=== PATIENT | female | born 1950 | race Caucasian/White ===

== ENCOUNTER → 2016-07-23 | Outpatient (CLI) | payer MEDICARE ==
[~2016-07-23] MED LIST: FLEXERIL10 MG PO; MOTRIN800 MG PO
== END | disposition home or self-care (01) ==
LOC: LAB 02:49
DX: K52.1 Toxic gastroenteritis and colitis (principal); R73.02 Impaired glucose tolerance (oral)

== ENCOUNTER → 2016-07-31 | Outpatient (CLI) | payer MEDICARE | END | disposition home or self-care (01) | LOC: LAB 11:14 | DX: K52.1 Toxic gastroenteritis and colitis (principal); R73.02 Impaired glucose tolerance (oral) ==

== ENCOUNTER → 2016-08-30 | Outpatient (CLI) | payer MEDICARE ==
[2016-08-30 07:22] LABS: HEMATOCRIT 36.3 % (37.0-47.0); HEMOGLOBIN 12.3 g/dl (12.0-16.0); MEAN CELL VOLUME 97.8 fl (81.0-99.0); MEAN CORPUSCULAR HGB 33.2 pg (27.0-31.0); MEAN CORPUSCULAR HGB CONC 33.9 g/dl (33.0-37.0); MEAN PLATELET VOLUME 8.2 fl (9.6-12.3); PLATELET COUNT AUTOMATED 260 10*3/uL (130-400); RED BLOOD COUNT 3.71 10*6/uL (4.10-5.10); RED CELL DISTRI WIDTH 11.9 % (0-14.5)
[2016-08-30 07:44] LABS: BASOPHILS 2 % (0-1); EOSINOPHIL # 0.1 10*3/uL (0-0.4); EOSINOPHILS 4 % (1-4); LYMPHOCYTE # 0.6 10*3/uL (1.3-4.4); METAMYELOCYTES 1 % (0-0); MONOCYTE # 0.3 10*3/uL (0.1-1.0); NEUTROPHIL # 0.7 10*3/uL (2.3-7.9); NEUTROPHILS 39 % (47-73); PLATELET SUFFICIENCY NORMAL (NORMAL); ROULEAUX SLIGHT; TOTAL CELLS COUNTED 100 #CELLS
[2016-08-30 07:47] LABS: BUN 6 mg/dl (7-24); CARBON DIOXIDE 29 mmol/L (21-32); CHLORIDE 100 mmol/L (98-107); GLUCOSE 88 mg/dL (65-99); POTASSIUM 4.3 mmol/L (3.5-5.1); SODIUM 133 mmol/L (136-145)
[2016-08-30 07:58] LABS: EST GLOM FILT AFRICAN AMERICAN > 60 ml/min; FREE T4 0.91 ng/dl (0.76-1.46)
[2016-08-30 08:21] LABS: WHITE BLOOD COUNT 1.7 10*3/uL (4.8-10.8)
== END | disposition home or self-care (01) ==
LOC: LAB 02:53
PROVIDERS: Internal Medicine
DX: E06.9 Thyroiditis, unspecified (principal)

== ENCOUNTER → 2016-12-03 | Outpatient (CLI) | payer MEDICARE ==
[2016-12-03 09:32] LABS: ALBUMIN 3.5 gm/dl (3.1-4.5); ALKALINE PHOSPHATASE 49 U/L (45-117); BILIRUBIN, TOTAL 0.5 mg/dl (0.2-1.0); BUN 9 mg/dl (7-24); CARBON DIOXIDE 27 mmol/L (21-32); CHLORIDE 96 mmol/L (98-107); EST GLOM FILT AFRICAN AMERICAN > 60 ml/min; GLUCOSE 76 mg/dL (65-99); MAGNESIUM 2.1 mg/dL (1.5-2.1); POTASSIUM 4.2 mmol/L (3.5-5.1); SGOT/AST 35 IU/L (3-35); SGPT/ALT 32 U/L (12-78); SODIUM 128 mmol/L (136-145); TOTAL PROTEIN 9.4 gm/dL (6.4-8.2)
[2016-12-03 10:27] LABS: PTH INTACT 56.3 pg/mL (14.0-72.0); VITAMIN D, 25-HYDROXY 35.8 ng/mL (30-100)
== END | disposition home or self-care (01) ==
LOC: LAB 08:35
PROVIDERS: Internal Medicine Nephrology
DX: E87.1 Hypo-osmolality and hyponatremia (principal); M35.00 Sjogren syndrome, unspecified; G70.00 Myasthenia gravis without (acute) exacerbation; E55.9 Vitamin D deficiency, unspecified

== ENCOUNTER → 2016-12-06 | Outpatient (CLI) | payer MEDICARE ==
[2016-12-06 09:41] LABS: BASO # 0.1 10*3/uL (0.0-0.1); BASO % 2.5 % (0.0-1.0); EOS % 1.5 % (1.0-4.0); HEMATOCRIT 32.9 % (37.0-47.0); LYMPH # 0.5 10*3/uL (1.3-4.4); LYMPH % 26.6 % (27.0-41.0); MEAN CELL VOLUME 96.5 fl (81.0-99.0); MEAN CORPUSCULAR HGB 32.3 pg (27.0-31.0); MEAN CORPUSCULAR HGB CONC 33.4 g/dl (33.0-37.0); MEAN PLATELET VOLUME 8.6 fl (9.6-12.3); MONO # 0.4 10*3/uL (0.1-1.0); MONO % 18.2 % (3.0-9.0); NEUT % 51.2 % (47.0-73.0); PLATELET COUNT AUTOMATED 191 10*3/uL (130-400); RED BLOOD COUNT 3.41 10*6/uL (4.10-5.10); RED CELL DISTRI WIDTH 12.4 % (0-14.5)
== END | disposition home or self-care (01) ==
LOC: LAB 00:24
PROVIDERS: Internal Medicine Nephrology
DX: M35.00 Sjogren syndrome, unspecified (principal); G70.00 Myasthenia gravis without (acute) exacerbation; R87.1 Abnormal level of hormones in specimens from female genital organs; E87.1 Hypo-osmolality and hyponatremia

== ENCOUNTER → 2017-01-17 | Outpatient (CLI) | payer MEDICARE | END | disposition home or self-care (01) | LOC: LAB 01-16 00:41 | DX: R19.7 Diarrhea, unspecified (principal) ==

== ENCOUNTER → 2017-02-26 | Outpatient (CLI) | payer MEDICARE ==
[2017-02-26 08:15] LABS: BILIRUBIN NEGATIVE (NEGATIVE); BLOOD TRACE-INTACT (NEGATIVE); CLARITY CLEAR (CLEAR); COLOR YELLOW (YELLOW); GLUCOSE NEGATIVE (NEGATIVE); KETONE NEGATIVE (NEGATIVE); LEUKO ESTERASE NEGATIVE (NEGATIVE); NITRITE NEGATIVE (NEGATIVE); UROBILINOGEN 0.2 E.U./dl (0.2-1.0)
[2017-02-26 08:18] LABS: HEMATOCRIT 36.1 % (37.0-47.0); MEAN CELL VOLUME 97.3 fl (81.0-99.0); MEAN CORPUSCULAR HGB 32.3 pg (27.0-31.0); MEAN CORPUSCULAR HGB CONC 33.2 g/dl (33.0-37.0); MEAN PLATELET VOLUME 8.5 fl (9.6-12.3); PLATELET COUNT AUTOMATED 226 10*3/uL (130-400); RED BLOOD COUNT 3.71 10*6/uL (4.10-5.10); RED CELL DISTRI WIDTH 12.5 % (0-14.5)
[2017-02-26 08:26] LABS: URINE CREATININE RANDOM 78.5 mg/dL
[2017-02-26 08:45] LABS: ALBUMIN 3.5 gm/dl (3.1-4.5); ALKALINE PHOSPHATASE 53 U/L (45-117); BUN 10 mg/dl (7-24); CHLORIDE 95 mmol/L (98-107); CREATININE 0.82 mg/dL (0.55-1.02); MAGNESIUM 2.3 mg/dL (1.5-2.1); PHOSPHOROUS 3.8 mg/dL (2.5-4.9); POTASSIUM 4.6 mmol/L (3.5-5.1); SGOT/AST 39 IU/L (3-35); SGPT/ALT 42 U/L (12-78); SODIUM 128 mmol/L (136-145); TOTAL PROTEIN 10.2 gm/dL (6.4-8.2); URIC ACID 2.4 mg/dL (2.6-6.0)
[2017-02-26 08:51] LABS: BACTERIA 1+
[2017-02-26 08:51] LABS: BASOPHILS 2 % (0-1); PLATELET SUFFICIENCY NORMAL (NORMAL); TOTAL CELLS COUNTED 100 #CELLS
[2017-02-26 08:56] LABS: WHITE BLOOD COUNT 1.8 10*3/uL (4.8-10.8)
[2017-02-27 12:08] LABS: MICRO ALBUMIN/CRE RATIO 13.3 (0.0-30.0)
== END | disposition home or self-care (01) ==
LOC: LAB 03:00
PROVIDERS: Internal Medicine Nephrology
DX: K22.70 Barrett's esophagus without dysplasia (principal); E87.1 Hypo-osmolality and hyponatremia; M35.00 Sjogren syndrome, unspecified; G70.00 Myasthenia gravis without (acute) exacerbation

== ENCOUNTER → 2017-03-12 | Outpatient (CLI) | payer MEDICARE ==
[2017-03-12 12:47] LABS: BUN 8 mg/dl (7-24); CHLORIDE 95 mmol/L (98-107); CREATININE 0.77 mg/dL (0.55-1.02); FREE T4 0.95 ng/dl (0.76-1.46); POTASSIUM 4.6 mmol/L (3.5-5.1); SODIUM 130 mmol/L (136-145)
[2017-03-13 15:07] LABS: THYROGLOBULIN ANTIBODY 72.6 IU/mL (0.0-0.9)
== END | disposition home or self-care (01) ==
LOC: LAB 03:56 → US 12:30 → LAB 12:30
PROVIDERS: Internal Medicine
DX: E04.1 Nontoxic single thyroid nodule (principal); E06.9 Thyroiditis, unspecified; E55.9 Vitamin D deficiency, unspecified; E16.1 Other hypoglycemia

== ENCOUNTER → 2017-04-04 | Outpatient (CLI) | payer MEDICARE ==
[2017-04-04 09:43] LABS: BASO # 0.1 10*3/uL (0.0-0.1); BASO % 2.2 % (0.0-1.0); EOS # 0.1 10*3/uL (0.0-0.4); EOS % 2.5 % (1.0-4.0); HEMATOCRIT 35.5 % (37.0-47.0); HEMOGLOBIN 11.9 g/dl (12.0-16.0); LYMPH # 0.6 10*3/uL (1.3-4.4); LYMPH % 20.4 % (27.0-41.0); MEAN CELL VOLUME 96.5 fl (81.0-99.0); MEAN CORPUSCULAR HGB 32.3 pg (27.0-31.0); MEAN CORPUSCULAR HGB CONC 33.5 g/dl (33.0-37.0); MEAN PLATELET VOLUME 8.7 fl (9.6-12.3); MONO # 0.3 10*3/uL (0.1-1.0); MONO % 11.5 % (3.0-9.0); NEUT # 1.8 10*3/uL (2.3-7.9); PLATELET COUNT AUTOMATED 224 10*3/uL (130-400); RED BLOOD COUNT 3.68 10*6/uL (4.10-5.10); RED CELL DISTRI WIDTH 12.2 % (0-14.5); WHITE BLOOD COUNT 2.8 10*3/uL (4.8-10.8)
[2017-04-04 10:13] LABS: ALBUMIN 3.8 gm/dl (3.1-4.5); ALKALINE PHOSPHATASE 53 U/L (45-117); BUN 9 mg/dl (7-24); CHLORIDE 97 mmol/L (98-107); CREATININE 0.77 mg/dL (0.55-1.02); FREE T4 0.93 ng/dl (0.76-1.46); IRON 88 ug/dL (50-170); POTASSIUM 4.5 mmol/L (3.5-5.1); SGOT/AST 39 IU/L (3-35); SGPT/ALT 44 U/L (12-78); SODIUM 131 mmol/L (136-145); TOTAL IRON BINDING CAPACITY 402 ug/dl (250-450); TOTAL PROTEIN 9.2 gm/dL (6.4-8.2)
[2017-04-04 12:33] LABS: FERRITIN 20.6 ng/mL (10.0-291.0)
[2017-04-05 06:10] LABS: HEP B CORE AB TOTAL 006718 Positive (Negative); HEPATITIS B SURFACE AB 006395 Reactive (.); HEPATITIS B SURFACE AG Negative (Negative)
[2017-04-05 17:11] LABS: t-TRANSGLUTAMINASE (tTG) IGA <2 U/mL (0-3); t-TRANSGLUTAMINASE (tTG) IgG 5 U/mL (0-5)
== END | disposition home or self-care (01) ==
LOC: LAB 00:43
PROVIDERS: Internal Medicine
DX: D46.9 Myelodysplastic syndrome, unspecified (principal); D64.9 Anemia, unspecified; R10.9 Unspecified abdominal pain; G70.00 Myasthenia gravis without (acute) exacerbation; E16.1 Other hypoglycemia; K59.00 Constipation, unspecified

== ENCOUNTER → 2017-04-07 | Outpatient (CLI) | payer MEDICARE | END | disposition home or self-care (01) | LOC: LAB 11:27 | PROVIDERS: Internal Medicine | DX: R19.7 Diarrhea, unspecified (principal); R10.9 Unspecified abdominal pain ==

== ENCOUNTER → 2017-07-16 | Outpatient (CLI) | payer MEDICARE ==
[2017-07-16 08:26] LABS: BUN 8 mg/dl (7-24); CHLORIDE 99 mmol/L (98-107); CREATININE 0.78 mg/dL (0.55-1.02); POTASSIUM 4.3 mmol/L (3.5-5.1); SODIUM 132 mmol/L (136-145)
[2017-07-16 08:34] LABS: FREE T4 0.84 ng/dl (0.76-1.46)
== END | disposition home or self-care (01) ==
LOC: LAB 00:33
PROVIDERS: Internal Medicine
DX: E55.9 Vitamin D deficiency, unspecified (principal); E16.1 Other hypoglycemia; E06.9 Thyroiditis, unspecified

== ENCOUNTER → 2017-07-22 | Outpatient (CLI) | payer MEDICARE ==
[2017-07-24 15:06] LABS: FAT (FECAL LIPIDS) QN 3.7 g/24 hr (0.0-7.1)
== END | disposition home or self-care (01) ==
LOC: LAB 03:45
PROVIDERS: Internal Medicine
DX: Z01.419 Encounter for gynecological examination (general) (routine) without abnormal findings (principal)

== ENCOUNTER → 2017-11-21 | Outpatient (CLI) | payer MEDICARE ==
[2017-11-21 08:46] LABS: BUN 10 mg/dl (7-24); CHLORIDE 99 mmol/L (98-107); CREATININE 0.68 mg/dL (0.55-1.02); POTASSIUM 4.3 mmol/L (3.5-5.1); SODIUM 134 mmol/L (136-145)
[2017-11-21 08:53] LABS: FREE T4 0.77 ng/dl (0.76-1.46)
[2017-11-24 14:09] LABS: THYROGLOBULIN ANTIBODY 20.8 IU/mL (0.0-0.9)
== END | disposition home or self-care (01) ==
LOC: LAB 01:22
PROVIDERS: Internal Medicine
DX: E55.9 Vitamin D deficiency, unspecified (principal); E06.9 Thyroiditis, unspecified; R73.02 Impaired glucose tolerance (oral); E27.40 Unspecified adrenocortical insufficiency

== ENCOUNTER → 2018-02-24 | Outpatient (CLI) | payer MEDICARE ==
[2018-02-24 08:44] LABS: FREE T4 0.86 ng/dl (0.76-1.46); THYROID STIM HORMONE (HS) 1.56 uIU/ml (0.358-4.75)
== END | disposition home or self-care (01) ==
LOC: LAB 02:55
PROVIDERS: Internal Medicine
DX: E04.1 Nontoxic single thyroid nodule (principal); E55.9 Vitamin D deficiency, unspecified

== ENCOUNTER → 2018-03-03 | Outpatient (CLI) | payer MEDICARE | END | disposition home or self-care (01) | LOC: CARD 02-25 07:30 | DX: I31.3 Pericardial effusion (noninflammatory) (principal); G70.00 Myasthenia gravis without (acute) exacerbation ==

== ENCOUNTER → 2018-06-30 | Outpatient (CLI) | payer MEDICARE | END | disposition home or self-care (01) | LOC: RESCLI 01:08 | DX: G70.00 Myasthenia gravis without (acute) exacerbation (principal); K22.719 Barrett's esophagus with dysplasia, unspecified; M35.01 Sjogren syndrome with keratoconjunctivitis; M35.00 Sjogren syndrome, unspecified; G90.9 Disorder of the autonomic nervous system, unspecified; G62.9 Polyneuropathy, unspecified; E23.3 Hypothalamic dysfunction, not elsewhere classified; C94.6 Myelodysplastic disease, not elsewhere classified; E55.9 Vitamin D deficiency, unspecified; Z79.899 Other long term (current) drug therapy; Z88.8 Allergy status to other drugs, medicaments and biological substances; Z90.710 Acquired absence of both cervix and uterus ==

== ENCOUNTER → 2018-09-22 | Outpatient (CLI) | payer MEDICARE ==
[2018-09-22 16:02] LABS: BASO # 0.1 10*3/uL (0.0-0.1); BASO % 1.8 % (0.0-1.0); EOS # 0.1 10*3/uL (0.0-0.4); EOS % 1.8 % (1.0-4.0); HEMATOCRIT 36.3 % (37.0-47.0); HEMOGLOBIN 11.7 g/dl (12.0-16.0); LYMPH # 0.5 10*3/uL (1.3-4.4); LYMPH % 19.4 % (27.0-41.0); MEAN CELL VOLUME 95.3 fl (81.0-99.0); MEAN CORPUSCULAR HGB 30.7 pg (27.0-31.0); MEAN CORPUSCULAR HGB CONC 32.2 g/dl (33.0-37.0); MEAN PLATELET VOLUME 8.6 fl (9.6-12.3); MONO # 0.3 10*3/uL (0.1-1.0); MONO % 12.2 % (3.0-9.0); NEUT # 1.8 10*3/uL (2.3-7.9); NEUT % 64.4 % (47.0-73.0); PLATELET COUNT AUTOMATED 261 10*3/uL (130-400); RED BLOOD COUNT 3.81 10*6/uL (4.10-5.10); RED CELL DISTRI WIDTH 15.7 % (0-14.5); WHITE BLOOD COUNT 2.8 10*3/uL (4.8-10.8)
[2018-09-24 05:10] LABS: HEP B CORE AB TOTAL 006718 Positive (Negative); HEPATITIS B SURFACE AB 006395 Reactive (.); HEPATITIS B SURFACE AG Negative (Negative); HEPATITIS Be ANTIGEN 006619 Negative (Negative)
== END | disposition home or self-care (01) ==
LOC: RESCLI 01:32
PROVIDERS: Internal Medicine
DX: K22.719 Barrett's esophagus with dysplasia, unspecified (principal); E55.9 Vitamin D deficiency, unspecified; M35.01 Sjogren syndrome with keratoconjunctivitis; G70.00 Myasthenia gravis without (acute) exacerbation; E23.3 Hypothalamic dysfunction, not elsewhere classified; G90.9 Disorder of the autonomic nervous system, unspecified; C94.6 Myelodysplastic disease, not elsewhere classified; R94.5 Abnormal results of liver function studies; M81.0 Age-related osteoporosis without current pathological fracture; W19.XXXD Unspecified fall, subsequent encounter; Z79.899 Other long term (current) drug therapy; Z88.8 Allergy status to other drugs, medicaments and biological substances

== ENCOUNTER → 2018-10-01 | Outpatient (CLI) | payer MEDICARE | END | disposition home or self-care (01) | LOC: CT 00:25 | DX: M47.897 Other spondylosis, lumbosacral region (principal); M53.3 Sacrococcygeal disorders, not elsewhere classified; M79.605 Pain in left leg; Z91.81 History of falling ==

== ENCOUNTER → 2018-10-27 | Outpatient (CLI) | payer MEDICARE ==
[2018-10-27 08:39] LABS: BUN 8 mg/dl (7-24); CHLORIDE 101 mmol/L (98-107); CREATININE 0.69 mg/dL (0.55-1.02); FREE T4 3.52 ng/dl (0.76-1.46); POTASSIUM 4.8 mmol/L (3.5-5.1); SODIUM 133 mmol/L (136-145)
[2018-10-27 08:48] LABS: THYROID STIM HORMONE (HS) < 0.005 uIU/ml (0.358-4.75)
[2018-10-28 07:04] LABS: THYROID PEROXIDASE (TPO) AB 41 IU/mL (0-34)
[2018-10-28 14:05] LABS: THYROGLOBULIN ANTIBODY <1.0 IU/mL (0.0-0.9)
== END | disposition home or self-care (01) ==
LOC: LAB 07:50
PROVIDERS: Internal Medicine
DX: E06.9 Thyroiditis, unspecified (principal); E55.9 Vitamin D deficiency, unspecified; R73.02 Impaired glucose tolerance (oral)

== ENCOUNTER → 2018-12-15 | Outpatient (CLI) | payer MEDICARE | END | disposition home or self-care (01) | LOC: RESCLI 00:28 | DX: K22.719 Barrett's esophagus with dysplasia, unspecified (principal); M35.01 Sjogren syndrome with keratoconjunctivitis; E55.9 Vitamin D deficiency, unspecified; G70.00 Myasthenia gravis without (acute) exacerbation; E23.3 Hypothalamic dysfunction, not elsewhere classified; G90.9 Disorder of the autonomic nervous system, unspecified; C94.6 Myelodysplastic disease, not elsewhere classified; M81.0 Age-related osteoporosis without current pathological fracture; Z79.899 Other long term (current) drug therapy ==

== ENCOUNTER → 2019-01-06 | Outpatient (CLI) | payer MEDICARE | END | disposition home or self-care (01) | LOC: LAB 11:28 | DX: R19.7 Diarrhea, unspecified (principal) ==

== ENCOUNTER → 2019-01-21 | Outpatient (CLI) | payer MEDICARE ==
[2019-01-21 11:45] LABS: FREE T4 1.28 ng/dl (0.76-1.46); THYROXINE (T4) TOTAL 11.8 ug/dl (4.8-13.9)
[2019-01-21 11:55] LABS: THYROID STIM HORMONE (HS) 13.8 uIU/ml (0.358-4.75)
== END | disposition home or self-care (01) ==
LOC: LAB 00:33
PROVIDERS: Internal Medicine Endocrinology, Diabetes & Metabolism
DX: E03.9 Hypothyroidism, unspecified (principal)

== ENCOUNTER → 2019-02-04 | Outpatient (CLI) | payer MEDICARE ==
[2019-02-04 09:49] LABS: FREE T4 1.38 ng/dl (0.76-1.46); THYROXINE (T4) TOTAL 12.4 ug/dl (4.8-13.9)
[2019-02-04 10:04] LABS: THYROID STIM HORMONE (HS) 0.393 uIU/ml (0.358-4.75)
== END | disposition home or self-care (01) ==
LOC: LAB 00:14
PROVIDERS: Internal Medicine Endocrinology, Diabetes & Metabolism
DX: E03.9 Hypothyroidism, unspecified (principal); E05.90 Thyrotoxicosis, unspecified without thyrotoxic crisis or storm; Z86.39 Personal history of other endocrine, nutritional and metabolic disease

== ENCOUNTER → 2019-03-18 | Outpatient (CLI) | payer MEDICARE ==
[2019-03-18 08:34] LABS: FREE T4 0.92 ng/dl (0.76-1.46); THYROXINE (T4) TOTAL 7.8 ug/dl (4.8-13.9)
[2019-03-18 08:41] LABS: THYROID STIM HORMONE (HS) 4.6 uIU/ml (0.358-4.75)
== END | disposition home or self-care (01) ==
LOC: LAB 00:49
PROVIDERS: Internal Medicine Endocrinology, Diabetes & Metabolism
DX: E03.9 Hypothyroidism, unspecified (principal)

== ENCOUNTER → 2019-03-30 | Outpatient (CLI) | payer MEDICARE ==
[2019-03-30 12:41] LABS: BASO # 0.1 10*3/uL (0.0-0.1); BASO % 1.7 % (0.0-1.0); EOS % 1.4 % (1.0-4.0); LYMPH # 0.8 10*3/uL (1.3-4.4); LYMPH % 26.4 % (27.0-41.0); MONO # 0.4 10*3/uL (0.1-1.0); MONO % 12.8 % (3.0-9.0); NEUT # 1.7 10*3/uL (2.3-7.9); NEUT % 57.4 % (47.0-73.0); WHITE BLOOD COUNT 2.9 10*3/uL (4.8-10.8)
== END | disposition home or self-care (01) ==
LOC: RESCLI 01:29
PROVIDERS: Internal Medicine
DX: E55.9 Vitamin D deficiency, unspecified (principal); G70.00 Myasthenia gravis without (acute) exacerbation; E23.3 Hypothalamic dysfunction, not elsewhere classified; G90.9 Disorder of the autonomic nervous system, unspecified; C94.6 Myelodysplastic disease, not elsewhere classified; E05.00 Thyrotoxicosis with diffuse goiter without thyrotoxic crisis or storm; E03.8 Other specified hypothyroidism; E06.3 Autoimmune thyroiditis; M81.0 Age-related osteoporosis without current pathological fracture; Z90.710 Acquired absence of both cervix and uterus; Z79.899 Other long term (current) drug therapy; Z88.8 Allergy status to other drugs, medicaments and biological substances

== ENCOUNTER → 2019-05-20 | Outpatient (CLI) | payer MEDICARE ==
[2019-05-20 08:42] LABS: FREE T4 0.97 ng/dl (0.76-1.46)
[2019-05-20 08:48] LABS: THYROID STIM HORMONE (HS) 5.39 uIU/ml (0.358-4.75)
== END | disposition home or self-care (01) ==
LOC: LAB 07:33
PROVIDERS: Internal Medicine Endocrinology, Diabetes & Metabolism
DX: E03.9 Hypothyroidism, unspecified (principal)

== ENCOUNTER → 2019-06-01 | Outpatient (CLI) | payer MEDICARE ==
[2019-06-01 08:39] LABS: FREE T4 0.91 ng/dl (0.76-1.46)
[2019-06-01 08:43] LABS: THYROID STIM HORMONE (HS) 5.51 uIU/ml (0.358-4.75)
== END | disposition home or self-care (01) ==
LOC: LAB 00:18
PROVIDERS: Internal Medicine Endocrinology, Diabetes & Metabolism
DX: Z86.39 Personal history of other endocrine, nutritional and metabolic disease (principal)

== ENCOUNTER → 2019-06-09 | Outpatient (CLI) | payer MEDICARE | END | disposition home or self-care (01) | LOC: RESCLI 15:57 | DX: M35.00 Sjogren syndrome, unspecified (principal); E55.9 Vitamin D deficiency, unspecified; E23.3 Hypothalamic dysfunction, not elsewhere classified; G90.9 Disorder of the autonomic nervous system, unspecified; C94.6 Myelodysplastic disease, not elsewhere classified; M35.01 Sjogren syndrome with keratoconjunctivitis; G70.00 Myasthenia gravis without (acute) exacerbation; K22.719 Barrett's esophagus with dysplasia, unspecified; E05.00 Thyrotoxicosis with diffuse goiter without thyrotoxic crisis or storm; E03.8 Other specified hypothyroidism; E06.3 Autoimmune thyroiditis; E03.9 Hypothyroidism, unspecified; Z79.899 Other long term (current) drug therapy; Z90.710 Acquired absence of both cervix and uterus; Z88.8 Allergy status to other drugs, medicaments and biological substances ==

== ENCOUNTER → 2019-07-02 | Outpatient (CLI) | payer MEDICARE ==
[2019-07-02 08:41] LABS: FREE T4 1.09 ng/dl (0.76-1.46)
[2019-07-02 08:50] LABS: THYROID STIM HORMONE (HS) 1.42 uIU/ml (0.358-4.75)
== END | disposition home or self-care (01) ==
LOC: LAB 00:16
PROVIDERS: Internal Medicine Endocrinology, Diabetes & Metabolism
DX: E03.9 Hypothyroidism, unspecified (principal)

== ENCOUNTER → 2019-10-11 | Outpatient (CLI) | payer MEDICARE ==
[2019-10-11 08:40] LABS: FREE T4 1.03 ng/dl (0.76-1.46)
[2019-10-11 08:45] LABS: THYROID STIM HORMONE (HS) 0.89 uIU/ml (0.358-4.75)
== END | disposition home or self-care (01) ==
LOC: LAB 02:07
PROVIDERS: Internal Medicine Endocrinology, Diabetes & Metabolism
DX: E03.9 Hypothyroidism, unspecified (principal)

== ENCOUNTER → 2019-10-28 | Outpatient (CLI) | payer MEDICARE | END | disposition home or self-care (01) | LOC: RESCLI 00:59 | DX: E23.3 Hypothalamic dysfunction, not elsewhere classified (principal); C94.6 Myelodysplastic disease, not elsewhere classified; G70.00 Myasthenia gravis without (acute) exacerbation; K22.719 Barrett's esophagus with dysplasia, unspecified; E55.9 Vitamin D deficiency, unspecified; M35.01 Sjogren syndrome with keratoconjunctivitis; E03.9 Hypothyroidism, unspecified; M35.00 Sjogren syndrome, unspecified; G90.9 Disorder of the autonomic nervous system, unspecified; R42 Dizziness and giddiness; M81.0 Age-related osteoporosis without current pathological fracture; Z90.710 Acquired absence of both cervix and uterus; Z98.890 Other specified postprocedural states; Z79.899 Other long term (current) drug therapy; Z88.5 Allergy status to narcotic agent; Z88.8 Allergy status to other drugs, medicaments and biological substances ==

== ENCOUNTER → 2020-01-25 | Outpatient (CLI) | payer MEDICARE ==
[2020-01-25 15:55] LABS: HEMATOCRIT 31.9 % (37.0-47.0); MEAN CELL VOLUME 90.9 fl (81.0-99.0); MEAN CORPUSCULAR HGB 29.3 pg (27.0-31.0); MEAN CORPUSCULAR HGB CONC 32.3 g/dl (33.0-37.0); MEAN PLATELET VOLUME 8.8 fl (9.6-12.3); PLATELET COUNT AUTOMATED 206 10*3/uL (130-400); RED BLOOD COUNT 3.51 10*6/uL (4.10-5.10); RED CELL DISTRI WIDTH 13.7 % (0-14.5)
[2020-01-25 16:02] LABS: WHITE BLOOD COUNT 1.9 10*3/uL (4.8-10.8)
[2020-01-25 16:21] LABS: BASOPHILS 8 % (0-1); PLATELET SUFFICIENCY NORMAL (NORMAL); TOTAL CELLS COUNTED 100 #CELLS
[2020-01-25 16:26] LABS: ALBUMIN 3.6 gm/dl (3.1-4.5); ALKALINE PHOSPHATASE 42 U/L (45-117); BUN 9 mg/dl (7-24); CHLORIDE 97 mmol/L (98-107); CHOLESTEROL 159 mg/dL (<200); CREATININE 0.71 mg/dL (0.55-1.02); FREE T4 1.18 ng/dl (0.76-1.46); HDL CHOLESTEROL 79 mg/dl (40-60); LDL CHOLESTEROL 70 mg/dL (9-159); POTASSIUM 4.4 mmol/L (3.5-5.1); SGOT/AST 40 IU/L (3-35); SGPT/ALT 56 U/L (12-78); SODIUM 127 mmol/L (136-145); TRIGLYCERIDES 50 mg/dl (<150); VLDL CHOLESTEROL 10 mg/dL (6-40)
[2020-01-25 16:45] LABS: VITAMIN D, 25-HYDROXY 66.1 ng/mL (30-100)
== END | disposition home or self-care (01) ==
LOC: RESCLI 01:19
PROVIDERS: Student in an Organized Health Care Education/Training Program; ATTEND Social Worker Clinical
DX: G70.00 Myasthenia gravis without (acute) exacerbation (principal); E23.3 Hypothalamic dysfunction, not elsewhere classified; C94.6 Myelodysplastic disease, not elsewhere classified; I10 Essential (primary) hypertension; K22.719 Barrett's esophagus with dysplasia, unspecified; E55.9 Vitamin D deficiency, unspecified; M35.01 Sjogren syndrome with keratoconjunctivitis; M35.00 Sjogren syndrome, unspecified; E03.9 Hypothyroidism, unspecified; R42 Dizziness and giddiness; L68.0 Hirsutism; Z23 Encounter for immunization; Z79.899 Other long term (current) drug therapy; Z98.890 Other specified postprocedural states; Z88.8 Allergy status to other drugs, medicaments and biological substances

== ENCOUNTER → 2020-08-23 | Outpatient (CLI) | payer MEDICARE ==
[2020-08-23 11:46] LABS: BASO % 1.4 % (0.0-1.0); EOS % 0.7 % (1.0-4.0); HEMATOCRIT 36.4 % (37.0-47.0); LYMPH # 0.6 10*3/uL (1.3-4.4); MEAN CELL VOLUME 94.3 fl (81.0-99.0); MEAN CORPUSCULAR HGB 30.8 pg (27.0-31.0); MEAN CORPUSCULAR HGB CONC 32.7 g/dl (33.0-37.0); MEAN PLATELET VOLUME 8.2 fl (9.6-12.3); MONO # 0.4 10*3/uL (0.1-1.0); MONO % 12.3 % (3.0-9.0); NEUT # 1.9 10*3/uL (2.3-7.9); NEUT % 65.6 % (47.0-73.0); PLATELET COUNT AUTOMATED 202 10*3/uL (130-400); RED BLOOD COUNT 3.86 10*6/uL (4.10-5.10); RED CELL DISTRI WIDTH 15.9 % (0-14.5); WHITE BLOOD COUNT 2.9 10*3/uL (4.8-10.8)
== END | disposition home or self-care (01) ==
LOC: RESCLI 00:54
PROVIDERS: Student in an Organized Health Care Education/Training Program; ATTEND Student in an Organized Health Care Education/Training Program
DX: M79.605 Pain in left leg (principal); E03.9 Hypothyroidism, unspecified; C94.6 Myelodysplastic disease, not elsewhere classified; G70.00 Myasthenia gravis without (acute) exacerbation; E55.9 Vitamin D deficiency, unspecified; M35.01 Sjogren syndrome with keratoconjunctivitis; M35.00 Sjogren syndrome, unspecified; R42 Dizziness and giddiness; K22.719 Barrett's esophagus with dysplasia, unspecified; L68.0 Hirsutism; E23.3 Hypothalamic dysfunction, not elsewhere classified; Z79.899 Other long term (current) drug therapy; Z90.710 Acquired absence of both cervix and uterus; Z98.890 Other specified postprocedural states; Z88.8 Allergy status to other drugs, medicaments and biological substances

== ENCOUNTER → 2020-10-04 | Outpatient (CLI) | payer MEDICARE ==
[2020-10-04 14:05] LABS: BUN 9 mg/dl (7-24); CHLORIDE 94 mmol/L (98-107); CREATININE 0.82 mg/dL (0.55-1.02); POTASSIUM 4.1 mmol/L (3.5-5.1); SODIUM 121 mmol/L (136-145)
[2020-10-04 14:09] LABS: FREE T4 0.97 ng/dl (0.76-1.46)
== END | disposition home or self-care (01) ==
LOC: LAB 01:45
PROVIDERS: ATTEND Internal Medicine Endocrinology, Diabetes & Metabolism
DX: E03.9 Hypothyroidism, unspecified (principal); M81.0 Age-related osteoporosis without current pathological fracture

== ENCOUNTER → 2020-10-11 | Outpatient (CLI) | payer MEDICARE ==
[2020-10-11 07:52] LABS: BUN 7 mg/dl (7-24); CHLORIDE 98 mmol/L (98-107); CREATININE 0.62 mg/dL (0.55-1.02); POTASSIUM 4.3 mmol/L (3.5-5.1); SODIUM 131 mmol/L (136-145)
== END | disposition home or self-care (01) ==
LOC: LAB 00:31
PROVIDERS: ATTEND Internal Medicine Endocrinology, Diabetes & Metabolism
DX: E87.1 Hypo-osmolality and hyponatremia (principal)

== ENCOUNTER → 2020-11-03 | Outpatient (CLI) | payer MEDICARE ==
[2020-11-03 07:54] LABS: HEMATOCRIT 33.6 % (37.0-47.0); MEAN CELL VOLUME 100.3 fl (81.0-99.0); MEAN CORPUSCULAR HGB 33.1 pg (27.0-31.0); MEAN PLATELET VOLUME 8.6 fl (9.6-12.3); PLATELET COUNT AUTOMATED 211 10*3/uL (130-400); RED BLOOD COUNT 3.35 10*6/uL (4.10-5.10); RED CELL DISTRI WIDTH 12.6 % (0-14.5)
[2020-11-03 08:12] LABS: CHLORIDE 98 mmol/L (98-107); POTASSIUM 4.6 mmol/L (3.5-5.1); SODIUM 126 mmol/L (136-145)
[2020-11-03 08:16] LABS: PLATELET SUFFICIENCY NORMAL (NORMAL); POLYCHROMASIA SLIGHT; TOTAL CELLS COUNTED 100 #CELLS
[2020-11-03 08:20] LABS: ALBUMIN 3.3 gm/dl (3.1-4.5); ALKALINE PHOSPHATASE 38 U/L (45-117); BUN 8 mg/dl (7-24); CREATININE 0.73 mg/dL (0.55-1.02); SGOT/AST 34 IU/L (3-35); SGPT/ALT 45 U/L (12-78); TOTAL PROTEIN 9.1 gm/dL (6.4-8.2); URIC ACID 3.6 mg/dL (2.6-6.0)
[2020-11-03 09:16] LABS: WHITE BLOOD COUNT 1.7 10*3/uL (4.8-10.8)
[2020-11-04 08:08] LABS: CREATININE,URINE 38.4 mg/dL (Not Estab.); MICRO ALBUMIN/CRE RATIO <8 (0-29)
== END | disposition home or self-care (01) ==
LOC: LAB 02:23
PROVIDERS: ATTEND Internal Medicine Nephrology
DX: G70.00 Myasthenia gravis without (acute) exacerbation (principal); E87.1 Hypo-osmolality and hyponatremia; M35.00 Sjogren syndrome, unspecified; K22.70 Barrett's esophagus without dysplasia; D64.9 Anemia, unspecified

== ENCOUNTER → 2020-12-25 | Outpatient (CLI) | payer MEDICARE ==
[2020-12-25 15:52] LABS: BASO # 0.1 10*3/uL (0.0-0.1); BASO % 1.5 % (0.0-1.0); EOS % 0.6 % (1.0-4.0); HEMATOCRIT 34.3 % (37.0-47.0); LYMPH # 0.4 10*3/uL (1.3-4.4); LYMPH % 12.7 % (27.0-41.0); MEAN CELL VOLUME 101.2 fl (81.0-99.0); MEAN CORPUSCULAR HGB CONC 32.7 g/dl (33.0-37.0); MEAN PLATELET VOLUME 8.6 fl (9.6-12.3); MONO # 0.4 10*3/uL (0.1-1.0); MONO % 11.4 % (3.0-9.0); NEUT # 2.4 10*3/uL (2.3-7.9); NEUT % 73.5 % (47.0-73.0); PLATELET COUNT AUTOMATED 172 10*3/uL (130-400); RED BLOOD COUNT 3.39 10*6/uL (4.10-5.10); RED CELL DISTRI WIDTH 12.1 % (0-14.5); WHITE BLOOD COUNT 3.2 10*3/uL (4.8-10.8)
== END | disposition home or self-care (01) ==
LOC: LAB 14:30
PROVIDERS: ATTEND Internal Medicine Hematology & Oncology
DX: D46.9 Myelodysplastic syndrome, unspecified (principal)

== ENCOUNTER → 2021-03-21 | Outpatient (CLI) | payer MEDICARE ==
[2021-03-21 09:27] LABS: HEMATOCRIT 34.8 % (37.0-47.0); MEAN CELL VOLUME 97.8 fl (81.0-99.0); MEAN CORPUSCULAR HGB 32.6 pg (27.0-31.0); MEAN CORPUSCULAR HGB CONC 33.3 g/dl (33.0-37.0); MEAN PLATELET VOLUME 8.6 fl (9.6-12.3); PLATELET COUNT AUTOMATED 240 10*3/uL (130-400); RED BLOOD COUNT 3.56 10*6/uL (4.10-5.10); RED CELL DISTRI WIDTH 12.2 % (0-14.5)
[2021-03-21 09:36] LABS: URINE CREATININE RANDOM 20.2 mg/dL
[2021-03-21 09:48] LABS: ALBUMIN 3.2 gm/dl (3.1-4.5); BUN 8 mg/dl (7-24); CHLORIDE 94 mmol/L (98-107); CREATININE 0.74 mg/dL (0.55-1.02); POTASSIUM 4.3 mmol/L (3.5-5.1); SGOT/AST 36 IU/L (3-35); SGPT/ALT 38 U/L (12-78); SODIUM 128 mmol/L (136-145); TOTAL PROTEIN 9.2 gm/dL (6.4-8.2); URIC ACID 3.1 mg/dL (2.6-6.0)
[2021-03-21 09:49] LABS: ALKALINE PHOSPHATASE 36 U/L (45-117)
[2021-03-21 09:56] LABS: BASOPHILS 3 % (0-1); PLATELET SUFFICIENCY NORMAL (NORMAL); TOTAL CELLS COUNTED 100 #CELLS
[2021-03-21 10:25] LABS: WHITE BLOOD COUNT 1.7 10*3/uL (4.8-10.8)
[2021-03-22 12:07] LABS: CREATININE,URINE 23.3 mg/dL (Not Estab.); MICRO ALBUMIN/CRE RATIO <13 (0-29)
== END | disposition home or self-care (01) ==
LOC: LAB 00:23
PROVIDERS: Internal Medicine Nephrology; ATTEND Internal Medicine Endocrinology, Diabetes & Metabolism
DX: E87.1 Hypo-osmolality and hyponatremia (principal)

== ENCOUNTER → 2021-03-23 | Outpatient (CLI) | payer MEDICARE ==
[2021-03-23 11:25] LABS: BUN 10 mg/dl (7-24); CHLORIDE 98 mmol/L (98-107); CREATININE 0.82 mg/dL (0.55-1.02); FREE T4 1.03 ng/dl (0.76-1.46); POTASSIUM 4.5 mmol/L (3.5-5.1); SODIUM 128 mmol/L (136-145)
== END | disposition home or self-care (01) ==
LOC: LAB 10:42
PROVIDERS: ATTEND Internal Medicine Endocrinology, Diabetes & Metabolism
DX: E87.1 Hypo-osmolality and hyponatremia (principal)

== ENCOUNTER → 2021-05-03 | Outpatient (CLI) | payer MEDICARE ==
[2021-05-03 08:35] LABS: BASO # 0.1 10*3/uL (0.0-0.1); BASO % 2.1 % (0.0-1.0); EOS # 0.1 10*3/uL (0.0-0.4); EOS % 2.9 % (1.0-4.0); HEMATOCRIT 36.6 % (37.0-47.0); LYMPH # 0.6 10*3/uL (1.3-4.4); LYMPH % 24.6 % (27.0-41.0); MEAN CELL VOLUME 97.9 fl (81.0-99.0); MEAN CORPUSCULAR HGB 32.4 pg (27.0-31.0); MEAN CORPUSCULAR HGB CONC 33.1 g/dl (33.0-37.0); MEAN PLATELET VOLUME 8.4 fl (9.6-12.3); MONO # 0.4 10*3/uL (0.1-1.0); MONO % 16.3 % (3.0-9.0); NEUT # 1.3 10*3/uL (2.3-7.9); NEUT % 53.7 % (47.0-73.0); PLATELET COUNT AUTOMATED 246 10*3/uL (130-400); RED BLOOD COUNT 3.74 10*6/uL (4.10-5.10); RED CELL DISTRI WIDTH 12.1 % (0-14.5); WHITE BLOOD COUNT 2.4 10*3/uL (4.8-10.8)
[2021-05-03 09:07] LABS: ALBUMIN 3.6 gm/dl (3.1-4.5); BUN 8 mg/dl (7-24); CHLORIDE 93 mmol/L (98-107); CREATININE 0.88 mg/dL (0.55-1.02); POTASSIUM 4.7 mmol/L (3.5-5.1); SGOT/AST 38 IU/L (3-35); SGPT/ALT 37 U/L (12-78); SODIUM 126 mmol/L (136-145); TOTAL PROTEIN 8.8 gm/dL (6.4-8.2)
[2021-05-03 09:09] LABS: ALKALINE PHOSPHATASE 51 U/L (45-117)
== END | disposition home or self-care (01) ==
LOC: LAB 00:33
PROVIDERS: ATTEND Internal Medicine
DX: E03.9 Hypothyroidism, unspecified (principal); G47.00 Insomnia, unspecified; R19.7 Diarrhea, unspecified; E87.1 Hypo-osmolality and hyponatremia; D68.0 Von Willebrand disease

== ENCOUNTER → 2021-05-07 | Outpatient (CLI) | payer MEDICARE | END | disposition home or self-care (01) | LOC: LAB 14:43 | PROVIDERS: ATTEND Internal Medicine | DX: E03.9 Hypothyroidism, unspecified (principal); E87.1 Hypo-osmolality and hyponatremia; R19.7 Diarrhea, unspecified; G47.00 Insomnia, unspecified; D68.0 Von Willebrand disease ==

== ENCOUNTER → 2021-05-17 | Outpatient (CLI) | payer MEDICARE | END | disposition home or self-care (01) | LOC: LAB 11:21 | PROVIDERS: ATTEND Internal Medicine | DX: R19.7 Diarrhea, unspecified (principal) ==

== ENCOUNTER → 2021-07-19 | Outpatient (CLI) | payer MEDICARE ==
[2021-07-19 12:18] LABS: BASO # 0.1 10*3/uL (0.0-0.1); BASO % 1.6 % (0.0-1.0); HEMATOCRIT 37.8 % (37.0-47.0); LYMPH # 0.5 10*3/uL (1.3-4.4); LYMPH % 15.1 % (27.0-41.0); MEAN CELL VOLUME 96.4 fl (81.0-99.0); MEAN CORPUSCULAR HGB 31.9 pg (27.0-31.0); MEAN CORPUSCULAR HGB CONC 33.1 g/dl (33.0-37.0); MEAN PLATELET VOLUME 7.9 fl (9.6-12.3); MONO # 0.5 10*3/uL (0.1-1.0); MONO % 15.1 % (3.0-9.0); NEUT # 2.1 10*3/uL (2.3-7.9); NEUT % 67.2 % (47.0-73.0); PLATELET COUNT AUTOMATED 187 10*3/uL (130-400); RED BLOOD COUNT 3.92 10*6/uL (4.10-5.10); WHITE BLOOD COUNT 3.1 10*3/uL (4.8-10.8)
[2021-07-19 12:40] LABS: ALKALINE PHOSPHATASE 40 U/L (45-117); BUN 11 mg/dl (7-24); CHLORIDE 98 mmol/L (98-107); CREATININE 0.67 mg/dL (0.55-1.02); POTASSIUM 4.7 mmol/L (3.5-5.1); SGOT/AST 43 IU/L (3-35); SGPT/ALT 48 U/L (12-78); SODIUM 130 mmol/L (136-145); TOTAL PROTEIN 8.8 gm/dL (6.4-8.2)
== END | disposition home or self-care (01) ==
LOC: RESCLI 00:32
PROVIDERS: Student in an Organized Health Care Education/Training Program; ATTEND Internal Medicine
DX: M47.816 Spondylosis without myelopathy or radiculopathy, lumbar region (principal); M48.061 Spinal stenosis, lumbar region without neurogenic claudication; R07.9 Chest pain, unspecified; I38 Endocarditis, valve unspecified; M25.551 Pain in right hip; R19.7 Diarrhea, unspecified; M35.00 Sjogren syndrome, unspecified; M25.78 Osteophyte, vertebrae; M41.86 Other forms of scoliosis, lumbar region; Z79.899 Other long term (current) drug therapy

== ENCOUNTER → 2021-07-23 | Outpatient (CLI) | payer MEDICARE ==
[2021-07-23 08:46] LABS: HEMATOCRIT 35.9 % (37.0-47.0); MEAN CELL VOLUME 97.6 fl (81.0-99.0); MEAN CORPUSCULAR HGB 32.6 pg (27.0-31.0); MEAN CORPUSCULAR HGB CONC 33.4 g/dl (33.0-37.0); MEAN PLATELET VOLUME 8.3 fl (9.6-12.3); PLATELET COUNT AUTOMATED 182 10*3/uL (130-400); RED BLOOD COUNT 3.68 10*6/uL (4.10-5.10); RED CELL DISTRI WIDTH 12.1 % (0-14.5)
[2021-07-23 08:47] LABS: MANUAL DIFF REFLEX YES
[2021-07-23 09:00] LABS: ALKALINE PHOSPHATASE 40 U/L (45-117); BUN 8 mg/dl (7-24); CHLORIDE 98 mmol/L (98-107); CREATININE 0.69 mg/dL (0.55-1.02); POTASSIUM 4.2 mmol/L (3.5-5.1); SGOT/AST 49 IU/L (3-35); SGPT/ALT 61 U/L (12-78); SODIUM 129 mmol/L (136-145); TOTAL PROTEIN 8.3 gm/dL (6.4-8.2); URIC ACID 2.4 mg/dL (2.6-6.0)
[2021-07-23 09:01] LABS: URINE CREATININE RANDOM 33.9 mg/dL
[2021-07-23 09:12] LABS: BASOPHILS 4 % (0-1); PLATELET SUFFICIENCY NORMAL (NORMAL); TOTAL CELLS COUNTED 100 #CELLS
[2021-07-23 10:09] LABS: WHITE BLOOD COUNT 1.6 10*3/uL (4.8-10.8)
[2021-07-24 11:07] LABS: MICRO ALBUMIN/CRE RATIO <9 (0-29)
== END | disposition home or self-care (01) ==
LOC: LAB 00:01
PROVIDERS: ATTEND Internal Medicine Nephrology
DX: N18.2 Chronic kidney disease, stage 2 (mild) (principal); E06.3 Autoimmune thyroiditis; E87.1 Hypo-osmolality and hyponatremia; I73.9 Peripheral vascular disease, unspecified; I73.00 Raynaud's syndrome without gangrene; D68.0 Von Willebrand disease

== ENCOUNTER → 2021-07-24 | Outpatient (CLI) | payer MEDICARE ==
[2021-07-24 08:09] LABS: ALKALINE PHOSPHATASE 43 U/L (45-117); BUN 8 mg/dl (7-24); CHLORIDE 96 mmol/L (98-107); CREATININE 0.68 mg/dL (0.55-1.02); FREE T4 1.14 ng/dl (0.76-1.46); SGOT/AST 54 IU/L (3-35); SGPT/ALT 71 U/L (12-78); SODIUM 132 mmol/L (136-145); TOTAL PROTEIN 8.8 gm/dL (6.4-8.2)
== END | disposition home or self-care (01) ==
LOC: LAB 00:24
PROVIDERS: ATTEND Internal Medicine Endocrinology, Diabetes & Metabolism
DX: M81.0 Age-related osteoporosis without current pathological fracture (principal); E16.1 Other hypoglycemia; E87.1 Hypo-osmolality and hyponatremia; E03.9 Hypothyroidism, unspecified; Z86.39 Personal history of other endocrine, nutritional and metabolic disease

== ENCOUNTER → 2021-08-16 | Outpatient (CLI) | payer MEDICARE | END | disposition home or self-care (01) | LOC: CARD 00:55 | PROVIDERS: ATTEND Internal Medicine | DX: I08.1 Rheumatic disorders of both mitral and tricuspid valves (principal) ==

== ENCOUNTER → 2021-11-16 | Outpatient (CLI) | payer MEDICARE ==
[2021-11-16 07:46] LABS: BUN 7 mg/dl (7-24); CHLORIDE 99 mmol/L (98-107); FREE T4 0.95 ng/dl (0.76-1.46); POTASSIUM 4.2 mmol/L (3.5-5.1); SODIUM 130 mmol/L (136-145)
== END | disposition home or self-care (01) ==
LOC: LAB 01:14
PROVIDERS: ATTEND Internal Medicine Endocrinology, Diabetes & Metabolism
DX: M81.0 Age-related osteoporosis without current pathological fracture (principal); E03.9 Hypothyroidism, unspecified

== ENCOUNTER → 2022-01-10 | Outpatient (CLI) | payer MEDICARE ==
[2022-01-10 08:12] LABS: BUN 9 mg/dl (7-24); CHLORIDE 100 mmol/L (98-107); CREATININE 0.71 mg/dL (0.55-1.02); FREE T4 0.96 ng/dl (0.76-1.46); POTASSIUM 4.5 mmol/L (3.5-5.1); SODIUM 132 mmol/L (136-145)
== END | disposition home or self-care (01) ==
LOC: LAB 00:01
PROVIDERS: ATTEND Internal Medicine Endocrinology, Diabetes & Metabolism
DX: M81.0 Age-related osteoporosis without current pathological fracture (principal); E03.9 Hypothyroidism, unspecified

== ENCOUNTER → 2022-03-21 | Outpatient (CLI) | payer MEDICARE ==
[2022-03-21 07:46] LABS: HEMATOCRIT 35.2 % (37.0-47.0); MEAN CELL VOLUME 95.1 fl (81.0-99.0); MEAN CORPUSCULAR HGB 31.6 pg (27.0-31.0); MEAN CORPUSCULAR HGB CONC 33.2 g/dl (33.0-37.0); MEAN PLATELET VOLUME 8.6 fl (9.6-12.3); PLATELET COUNT AUTOMATED 213 10*3/uL (130-400); RED CELL DISTRI WIDTH 12.2 % (0-14.5)
[2022-03-21 08:02] LABS: MANUAL DIFF REFLEX YES
[2022-03-21 08:06] LABS: WHITE BLOOD COUNT 1.7 10*3/uL (4.8-10.8)
[2022-03-21 08:10] LABS: BUN 8 mg/dl (7-24); CHLORIDE 95 mmol/L (98-107); POTASSIUM 4.2 mmol/L (3.5-5.1); SGPT/ALT 34 U/L (12-78); SODIUM 127 mmol/L (136-145); URIC ACID 2.8 mg/dL (2.6-6.0)
[2022-03-21 08:11] LABS: ALKALINE PHOSPHATASE 33 U/L (45-117)
[2022-03-21 08:32] LABS: ATYPICAL LYMPHS 1 % (0-0); BASOPHILS 2 % (0-1); OVALOCYTES FEW; PLATELET SUFFICIENCY NORMAL (NORMAL); POLYCHROMASIA SLIGHT; TOTAL CELLS COUNTED 100 #CELLS
== END | disposition home or self-care (01) ==
LOC: LAB 00:26
PROVIDERS: ATTEND Internal Medicine Nephrology
DX: N18.2 Chronic kidney disease, stage 2 (mild) (principal); E06.3 Autoimmune thyroiditis; I73.00 Raynaud's syndrome without gangrene; D68.00 Von Willebrand disease, unspecified; E87.1 Hypo-osmolality and hyponatremia

== ENCOUNTER → 2022-04-23 | Outpatient (CLI) | payer MEDICARE ==
[2022-04-23 08:42] LABS: BUN 7 mg/dl (9-23); CHLORIDE 98 mmol/L (98-107); CREATININE 0.72 mg/dL (0.55-1.02); POTASSIUM 4.5 mmol/L (3.4-5.1); SODIUM 128 mmol/L (136-145)
== END | disposition home or self-care (01) ==
LOC: LAB 00:54
PROVIDERS: ATTEND Internal Medicine Endocrinology, Diabetes & Metabolism
DX: E55.9 Vitamin D deficiency, unspecified (principal); M81.0 Age-related osteoporosis without current pathological fracture

== ENCOUNTER → 2022-07-23 | Outpatient (CLI) | payer MEDICARE ==
[2022-07-23 10:24] LABS: BUN 6 mg/dl (9-23); CHLORIDE 95 mmol/L (98-107); FREE T4 1.66 ng/dl (0.89-1.76); POTASSIUM 4.3 mmol/L (3.4-5.1); THYROID STIM HORMONE (HS) 1.187 uIU/ml (0.550-4.780)
== END | disposition home or self-care (01) ==
LOC: LAB 09:12
PROVIDERS: ATTEND Internal Medicine Endocrinology, Diabetes & Metabolism
DX: E03.9 Hypothyroidism, unspecified (principal)

== ENCOUNTER → 2022-08-15 | Outpatient (CLI) | payer MEDICARE | END | disposition home or self-care (01) | LOC: RAD 10:34 | PROVIDERS: ATTEND Nurse Practitioner | DX: K59.00 Constipation, unspecified (principal); R14.3 Flatulence; R19.7 Diarrhea, unspecified; R14.2 Eructation ==

== ENCOUNTER → 2022-08-28 | Outpatient (CLI) | payer MEDICARE ==
[2022-08-28 13:29] LABS: BASO # 0.1 10*3/uL (0.0-0.1); BASO % 3.1 % (0.0-1.0); EOS # 0.1 10*3/uL (0.0-0.4); EOS % 3.6 % (1.0-4.0); HEMATOCRIT 30.2 % (37.0-47.0); LYMPH # 0.7 10*3/uL (1.3-4.4); LYMPH % 31.8 % (27.0-41.0); MEAN CORPUSCULAR HGB 30.1 pg (27.0-31.0); MEAN CORPUSCULAR HGB CONC 33.1 g/dl (33.0-37.0); MEAN PLATELET VOLUME 8.5 fl (9.6-12.3); MONO # 0.3 10*3/uL (0.1-1.0); MONO % 15.2 % (3.0-9.0); NEUT % 46.3 % (47.0-73.0); PLATELET COUNT AUTOMATED 193 10*3/uL (130-400); RED BLOOD COUNT 3.32 10*6/uL (4.10-5.10); RED CELL DISTRI WIDTH 12.9 % (0-14.5); WHITE BLOOD COUNT 2.2 10*3/uL (4.8-10.8)
[2022-08-28 14:00] LABS: URINE CREATININE RANDOM 21.87 mg/dL
[2022-08-28 14:02] LABS: ALKALINE PHOSPHATASE 32 U/L (46-116); BUN 6 mg/dl (9-23); CHLORIDE 99 mmol/L (98-107); POTASSIUM 4.1 mmol/L (3.4-5.1); SGPT/ALT 25 U/L (10-49); TOTAL PROTEIN 8.7 gm/dL (6.0-8.0); URIC ACID 3.1 mg/dL (3.1-7.8)
== END | disposition home or self-care (01) ==
LOC: LAB 01:24
PROVIDERS: ATTEND Internal Medicine Nephrology
DX: N18.2 Chronic kidney disease, stage 2 (mild) (principal); E06.3 Autoimmune thyroiditis; E87.1 Hypo-osmolality and hyponatremia; E03.9 Hypothyroidism, unspecified; D68.00 Von Willebrand disease, unspecified; I73.00 Raynaud's syndrome without gangrene

== ENCOUNTER 2022-11-24 18:48 | Emergency (ER) | payer MEDICARE ==
[~2022-11-24] VITALS: Ht 157.4 cm; Wt 45.4 kg
[2022-11-24] MEDS ORDERED: CEPHALEXIN500 M1 PO (21:14)
[2022-11-24] MEDS ORDERED: MEDROL DOSEPAK4 MG PO (21:14)
== END 2022-11-24 21:38 | disposition home or self-care (01) ==
LOC: ED 18:48
DX: T63.451A Toxic effect of venom of hornets, accidental (unintentional), initial encounter (principal); K21.9 Gastro-esophageal reflux disease without esophagitis; Z88.5 Allergy status to narcotic agent; Z88.8 Allergy status to other drugs, medicaments and biological substances; Z91.040 Latex allergy status; Y92.89 Other specified places as the place of occurrence of the external cause

== ENCOUNTER → 2022-12-10 | Outpatient (CLI) | payer MEDICARE ==
[~2022-12-10] MED LIST changes: +CEPHALEXIN500 M1 PO; +MEDROL DOSEPAK4 MG PO
[2022-12-10 08:32] LABS: ALKALINE PHOSPHATASE 31 U/L (46-116); BUN 6 mg/dl (9-23); CHLORIDE 98 mmol/L (98-107); FREE T4 1.45 ng/dl (0.89-1.76); POTASSIUM 4.4 mmol/L (3.4-5.1); SGPT/ALT 31 U/L (10-49); TOTAL PROTEIN 7.5 gm/dL (6.0-8.0)
== END | disposition home or self-care (01) ==
LOC: LAB 02:07
PROVIDERS: ATTEND Internal Medicine Endocrinology, Diabetes & Metabolism
DX: E03.9 Hypothyroidism, unspecified (principal); M81.0 Age-related osteoporosis without current pathological fracture

== ENCOUNTER → 2023-02-24 | Outpatient (CLI) | payer MEDICARE ==
[2023-02-24 17:28] LABS: BILIRUBIN Negative (Negative); BLOOD Negative (Negative); CLARITY Clear (Clear); COLOR Yellow (Yellow); GLUCOSE Negative (Negative); KETONE Negative (Negative); LEUKO ESTERASE Negative (Negative); NITRITE Negative (Negative); PH 7.5 (4.5-8.0); SPECIFIC GRAVITY <= 1.005 (1.001-1.030); UROBILINOGEN 0.2 E.U./dl (0.0-1.0)
[2023-02-24 17:48] LABS: BACTERIA TRACE; RBC 0-2 rbc/hpf (0-2); WBC 0-2 wbc/hpf (0-5)
== END | disposition home or self-care (01) ==
LOC: RESCLI 01:32
PROVIDERS: Student in an Organized Health Care Education/Training Program; ATTEND Internal Medicine
DX: R35.0 Frequency of micturition (principal)

== ENCOUNTER → 2023-02-28 | Outpatient (CLI) | payer MEDICARE ==
[2023-02-28 08:08] LABS: HEMATOCRIT 36.3 % (37.0-47.0); MEAN CORPUSCULAR HGB 32.5 pg (27.0-31.0); MEAN CORPUSCULAR HGB CONC 33.9 g/dl (33.0-37.0); MEAN PLATELET VOLUME 8.4 fl (9.6-12.3); PLATELET COUNT AUTOMATED 189 10*3/uL (130-400); RED BLOOD COUNT 3.78 10*6/uL (4.10-5.10); RED CELL DISTRI WIDTH 12.8 % (0-14.5)
[2023-02-28 08:13] LABS: MANUAL DIFF REFLEX YES
[2023-02-28 08:18] LABS: URINE CREATININE RANDOM 34.75 mg/dL
[2023-02-28 08:36] LABS: BASOPHILS 3 % (0-1); PLATELET SUFFICIENCY NORMAL (NORMAL); TOTAL CELLS COUNTED 100 #CELLS
[2023-02-28 08:41] LABS: WHITE BLOOD COUNT 1.9 10*3/uL (4.8-10.8)
[2023-02-28 08:45] LABS: ALKALINE PHOSPHATASE 38 U/L (46-116); BUN 6 mg/dl (9-23); CHLORIDE 100 mmol/L (98-107); POTASSIUM 4.5 mmol/L (3.4-5.1); SGPT/ALT 43 U/L (5-49); TOTAL PROTEIN 8.1 gm/dL (6.0-8.0)
== END | disposition home or self-care (01) ==
LOC: LAB 00:31
PROVIDERS: ATTEND Internal Medicine Nephrology
DX: N28.1 Cyst of kidney, acquired (principal); E87.1 Hypo-osmolality and hyponatremia; R60.9 Edema, unspecified

== ENCOUNTER → 2023-03-20 | Outpatient (CLI) | payer MEDICARE ==
[2023-03-20 08:03] LABS: BILIRUBIN Negative (Negative); BLOOD Negative (Negative); CLARITY Clear (Clear); COLOR Yellow (Yellow); GLUCOSE Negative (Negative); KETONE Negative (Negative); LEUKO ESTERASE Negative (Negative); NITRITE Negative (Negative); PH 7.5 (4.5-8.0); UROBILINOGEN 0.2 E.U./dl (0.0-1.0)
[2023-03-20 08:11] LABS: EPITHELIAL CELLS 0-2; RBC 0-2 rbc/hpf (0-2); WBC 0-2 wbc/hpf (0-5)
== END | disposition home or self-care (01) ==
LOC: LAB 07:08
PROVIDERS: ATTEND Internal Medicine Nephrology
DX: G70.00 Myasthenia gravis without (acute) exacerbation (principal); E87.1 Hypo-osmolality and hyponatremia; Z79.899 Other long term (current) drug therapy

== ENCOUNTER → 2023-07-30 | Outpatient (CLI) | payer MEDICARE ==
[2023-07-30 15:29] LABS: FREE T4 1.35 ng/dl (0.89-1.76)
== END | disposition home or self-care (01) ==
LOC: LAB 05:21
PROVIDERS: ATTEND Internal Medicine Endocrinology, Diabetes & Metabolism
DX: E03.9 Hypothyroidism, unspecified (principal)

== ENCOUNTER → 2023-08-04 | Outpatient (CLI) | payer MEDICARE | END | disposition home or self-care (01) | LOC: LAB 12:13 | PROVIDERS: ATTEND Internal Medicine | DX: R19.7 Diarrhea, unspecified (principal) ==

== ENCOUNTER → 2023-11-14 | Outpatient (CLI) | payer MEDICARE ==
[2023-11-14 09:28] LABS: HEMATOCRIT 36.2 % (37.0-47.0); MEAN CELL VOLUME 95.3 fl (81.0-99.0); MEAN CORPUSCULAR HGB 31.3 pg (27.0-31.0); MEAN CORPUSCULAR HGB CONC 32.9 g/dl (33.0-37.0); MEAN PLATELET VOLUME 7.9 fl (9.6-12.3); PLATELET COUNT AUTOMATED 187 10*3/uL (130-400); RED CELL DISTRI WIDTH 12.1 % (0-14.5)
[2023-11-14 09:32] LABS: MANUAL DIFF REFLEX YES
[2023-11-14 09:38] LABS: URINE CREATININE RANDOM 19.36 mg/dL
[2023-11-14 09:51] LABS: ALKALINE PHOSPHATASE 40 U/L (46-116); BUN 7 mg/dl (9-23); CHLORIDE 99 mmol/L (98-107); POTASSIUM 4.6 mmol/L (3.4-5.1); SGPT/ALT 21 U/L (5-49); TOTAL PROTEIN 7.9 gm/dL (6.0-8.0); URIC ACID 3.3 mg/dL (3.1-7.8)
[2023-11-14 10:51] LABS: BASOPHILS 2 % (0-1); PLATELET SUFFICIENCY NORMAL (NORMAL); TOTAL CELLS COUNTED 100 #CELLS
== END | disposition home or self-care (01) ==
LOC: LAB 01:16
PROVIDERS: ATTEND Internal Medicine Nephrology
DX: E87.1 Hypo-osmolality and hyponatremia (principal)

== ENCOUNTER → 2023-11-18 | Outpatient (CLI) | payer MEDICARE ==
[2023-11-18 13:33] LABS: BASO % 1.7 % (0.0-1.0); EOS # 0.1 10*3/uL (0.0-0.4); EOS % 2.9 % (1.0-4.0); HEMATOCRIT 34.8 % (37.0-47.0); LYMPH # 0.7 10*3/uL (1.3-4.4); LYMPH % 28.9 % (27.0-41.0); MEAN CELL VOLUME 93.8 fl (81.0-99.0); MEAN CORPUSCULAR HGB 31.5 pg (27.0-31.0); MEAN CORPUSCULAR HGB CONC 33.6 g/dl (33.0-37.0); MEAN PLATELET VOLUME 8.3 fl (9.6-12.3); MONO # 0.3 10*3/uL (0.1-1.0); MONO % 11.2 % (3.0-9.0); NEUT # 1.3 10*3/uL (2.3-7.9); NEUT % 54.9 % (47.0-73.0); PLATELET COUNT AUTOMATED 203 10*3/uL (130-400); RED BLOOD COUNT 3.71 10*6/uL (4.10-5.10); RED CELL DISTRI WIDTH 12.1 % (0-14.5); WHITE BLOOD COUNT 2.4 10*3/uL (4.8-10.8)
[2023-11-18 14:05] LABS: SGPT/ALT 21 U/L (5-49)
== END | disposition home or self-care (01) ==
LOC: LAB 01:31
PROVIDERS: ATTEND Internal Medicine Rheumatology
DX: M81.0 Age-related osteoporosis without current pathological fracture (principal); M35.00 Sjogren syndrome, unspecified; Z79.899 Other long term (current) drug therapy

== ENCOUNTER → 2023-12-10 | Outpatient (CLI) | payer MEDICARE ==
[2023-12-13 01:06] LABS: IGG P18 AB Absent (.); IGG P23 AB Absent (.); IGG P28 AB Absent (.); IGG P30 AB Absent (.); IGG P39 AB Present (.); IGG P41 AB Present (.); IGG P45 AB Absent (.); IGG P58 AB Present (.); IGG P63 AB Present (.); IGG P66 AB Absent (.); IGM P23 AB Absent (.); IGM P39 AB Absent (.); IGM P41 AB Absent (.); LYME IGG WB INTERPRETATION Negative (.); LYME IGM WB INTERPRETATION Negative (.)
== END | disposition home or self-care (01) ==
LOC: LAB 02:18
PROVIDERS: ATTEND Specialist
DX: Z09 Encounter for follow-up examination after completed treatment for conditions other than malignant neoplasm (principal); S80.861A Insect bite (nonvenomous), right lower leg, initial encounter; L82.0 Inflamed seborrheic keratosis; L53.8 Other specified erythematous conditions; L81.4 Other melanin hyperpigmentation; D22.5 Melanocytic nevi of trunk; L82.1 Other seborrheic keratosis; X58.XXXA Exposure to other specified factors, initial encounter; Y93.89 Activity, other specified; Y92.89 Other specified places as the place of occurrence of the external cause; Y99.8 Other external cause status

== ENCOUNTER → 2023-12-22 | Outpatient (CLI) | payer MEDICARE | END | disposition home or self-care (01) | LOC: LAB 13:08 | PROVIDERS: ATTEND Internal Medicine | DX: R19.7 Diarrhea, unspecified (principal) ==

== ENCOUNTER → 2024-01-14 | Outpatient (CLI) | payer MEDICARE | END | disposition home or self-care (01) | LOC: LAB 03:00 | PROVIDERS: ATTEND Internal Medicine | DX: R19.7 Diarrhea, unspecified (principal) ==

== ENCOUNTER → 2024-01-16 | Outpatient (CLI) | payer MEDICARE | END | disposition home or self-care (01) | LOC: LAB 14:19 | PROVIDERS: ATTEND Internal Medicine | DX: R19.7 Diarrhea, unspecified (principal) ==

== ENCOUNTER → 2024-01-20 | Outpatient (CLI) | payer MEDICARE ==
[2024-01-20 08:12] LABS: FREE T4 1.3 ng/dl (0.89-1.76)
== END | disposition home or self-care (01) ==
LOC: LAB 01:50
PROVIDERS: ATTEND Internal Medicine Endocrinology, Diabetes & Metabolism
DX: E03.9 Hypothyroidism, unspecified (principal)

== ENCOUNTER → 2024-02-12 | Outpatient (CLI) | payer MEDICARE ==
[2024-02-12 16:03] LABS: ALKALINE PHOSPHATASE 38 U/L (46-116); BUN 7 mg/dl (9-23); CHLORIDE 94 mmol/L (98-107); FREE T4 1.57 ng/dl (0.89-1.76); POTASSIUM 3.9 mmol/L (3.4-5.1); SGPT/ALT 46 U/L (5-49); TOTAL PROTEIN 9.4 gm/dL (6.0-8.0)
== END | disposition home or self-care (01) ==
LOC: LAB 15:16
PROVIDERS: ATTEND Clinical Nurse Specialist
DX: E03.9 Hypothyroidism, unspecified (principal)

== ENCOUNTER → 2024-03-05 | Outpatient (CLI) | payer MEDICARE ==
[2024-03-06 15:07] LABS: t-TRANSGLUTAMINASE (tTG) IGA <2 U/mL (0-3); t-TRANSGLUTAMINASE (tTG) IgG 4 U/mL (0-5)
[2024-03-08 14:07] LABS: ENDOMYSIAL ANTIBODY IgA Negative (Negative)
== END | disposition home or self-care (01) ==
LOC: LAB 03:09
PROVIDERS: ATTEND Internal Medicine
DX: K90.0 Celiac disease (principal)

== ENCOUNTER → 2024-03-25 | Outpatient (CLI) | payer MEDICARE ==
[2024-03-25 10:39] LABS: ALKALINE PHOSPHATASE 45 U/L (46-116); BUN 7 mg/dl (9-23); CHLORIDE 98 mmol/L (98-107); POTASSIUM 4.3 mmol/L (3.4-5.1); SGPT/ALT 39 U/L (5-49); TOTAL PROTEIN 8.9 gm/dL (6.0-8.0)
== END | disposition home or self-care (01) ==
LOC: LAB 03-24 14:49
PROVIDERS: ATTEND Internal Medicine Endocrinology, Diabetes & Metabolism
DX: M81.0 Age-related osteoporosis without current pathological fracture (principal)

== ENCOUNTER → 2024-05-27 | Outpatient (CLI) | payer MEDICARE ==
[2024-05-27 10:14] LABS: BASO # 0.1 10*3/uL (0.0-0.1); EOS % 1.1 % (1.0-4.0); HEMATOCRIT 38.1 % (37.0-47.0); MEAN CELL VOLUME 96.2 fl (81.0-99.0); MEAN CORPUSCULAR HGB 31.1 pg (27.0-31.0); MEAN CORPUSCULAR HGB CONC 32.3 g/dl (33.0-37.0); MEAN PLATELET VOLUME 8.2 fl (9.6-12.3); MONO # 0.4 10*3/uL (0.1-1.0); MONO % 12.1 % (3.0-9.0); NEUT # 1.8 10*3/uL (2.3-7.9); NEUT % 51.4 % (47.0-73.0); PLATELET COUNT AUTOMATED 246 10*3/uL (130-400); RED BLOOD COUNT 3.96 10*6/uL (4.10-5.10); RED CELL DISTRI WIDTH 12.4 % (0-14.5); WHITE BLOOD COUNT 3.5 10*3/uL (4.8-10.8)
[2024-05-27 10:36] LABS: ALKALINE PHOSPHATASE 34 U/L (46-116); BUN 8 mg/dl (9-23); CHLORIDE 96 mmol/L (98-107); POTASSIUM 3.8 mmol/L (3.4-5.1); SGPT/ALT 26 U/L (5-49); TOTAL PROTEIN 7.7 gm/dL (6.0-8.0); URIC ACID 2.9 mg/dL (3.1-7.8)
== END | disposition home or self-care (01) ==
LOC: LAB 03:12
PROVIDERS: ATTEND Internal Medicine Nephrology
DX: E87.1 Hypo-osmolality and hyponatremia (principal); E22.2 Syndrome of inappropriate secretion of antidiuretic hormone; N28.1 Cyst of kidney, acquired; N18.1 Chronic kidney disease, stage 1

== ENCOUNTER → 2024-08-02 | Outpatient (CLI) | payer MEDICARE ==
[2024-08-02 14:06] LABS: ALKALINE PHOSPHATASE 39 U/L (46-116); BUN 11 mg/dl (9-23); CHLORIDE 96 mmol/L (98-107); FREE T4 1.63 ng/dl (0.89-1.76); POTASSIUM 4.2 mmol/L (3.4-5.1); SGPT/ALT 57 U/L (5-49); TOTAL PROTEIN 8.8 gm/dL (6.0-8.0)
== END | disposition home or self-care (01) ==
LOC: RESCLI 03:38 → LAB 03:39 → RESCLI 03:39
PROVIDERS: Student in an Organized Health Care Education/Training Program; ATTEND Family Medicine
DX: E03.9 Hypothyroidism, unspecified (principal)

== ENCOUNTER → 2024-08-20 | Outpatient (CLI) | payer MEDICARE ==
[2024-08-20 11:01] LABS: BUN 8 mg/dl (9-23); CHLORIDE 99 mmol/L (98-107); POTASSIUM 4.2 mmol/L (3.4-5.1); THYROXINE (T4) TOTAL 6.9 ug/dl (4.5-10.9)
[2024-08-23 05:06] LABS: HUMAN GROWTH HORMONE 3.1 ng/mL (0.0-10.0)
== END | disposition home or self-care (01) ==
LOC: LAB 00:26
PROVIDERS: ATTEND Internal Medicine Endocrinology, Diabetes & Metabolism
DX: D89.89 Other specified disorders involving the immune mechanism, not elsewhere classified (principal); E23.6 Other disorders of pituitary gland

== ENCOUNTER → 2024-11-02 | Outpatient (CLI) | payer MEDICARE | END | disposition home or self-care (01) | LOC: LAB 02:39 | PROVIDERS: ATTEND Internal Medicine | DX: E23.7 Disorder of pituitary gland, unspecified (principal); R79.9 Abnormal finding of blood chemistry, unspecified ==

== ENCOUNTER → 2024-11-09 | Outpatient (CLI) | payer MEDICARE | END | disposition home or self-care (01) | LOC: LAB 03:52 | PROVIDERS: ATTEND Internal Medicine | DX: E23.7 Disorder of pituitary gland, unspecified (principal); R42 Dizziness and giddiness; R79.9 Abnormal finding of blood chemistry, unspecified ==

== ENCOUNTER → 2024-12-08 | Outpatient (CLI) | payer MEDICARE ==
[2024-12-08 08:10] LABS: MEAN CELL VOLUME 90.9 fl (81.0-99.0); MEAN CORPUSCULAR HGB 29.6 pg (27.0-31.0); MEAN PLATELET VOLUME 8.5 fl (9.6-12.3); NUCLEATED RED BLOOD CELL 0.0 % (0.0-0.0); NUCLEATED RED BLOOD CELL 0.0 10*3/uL (0.0-0.0); PLATELET COUNT AUTOMATED 208 10*3/uL (130-400); RED CELL DISTRI WIDTH 14.1 % (0-14.5)
[2024-12-08 08:19] LABS: MANUAL DIFF REFLEX YES
[2024-12-08 08:31] LABS: BASOPHILS 2 % (0-1); PLATELET SUFFICIENCY NORMAL (NORMAL)
[2024-12-08 08:58] LABS: BUN 10 mg/dl (9-23); SGPT/ALT 21 U/L (5-49)
== END | disposition home or self-care (01) ==
LOC: LAB 07:32
PROVIDERS: ATTEND Internal Medicine Nephrology
DX: E22.2 Syndrome of inappropriate secretion of antidiuretic hormone (principal); D64.9 Anemia, unspecified

== ENCOUNTER → 2024-12-23 | Outpatient (CLI) | payer MEDICARE ==
[2024-12-23 08:04] LABS: MEAN CELL VOLUME 91.2 fl (81.0-99.0); MEAN CORPUSCULAR HGB 28.8 pg (27.0-31.0); MEAN PLATELET VOLUME 8.2 fl (9.6-12.3); NUCLEATED RED BLOOD CELL 0.0 % (0.0-0.0); NUCLEATED RED BLOOD CELL 0.0 10*3/uL (0.0-0.0); PLATELET COUNT AUTOMATED 224 10*3/uL (130-400); RED CELL DISTRI WIDTH 14.0 % (0-14.5)
[2024-12-23 08:16] LABS: MANUAL DIFF REFLEX YES
[2024-12-23 08:52] LABS: BASOPHILS 8 % (0-1); PLATELET SUFFICIENCY NORMAL (NORMAL)
[2024-12-23 11:34] LABS: BUN 9 mg/dl (9-23); FREE T4 1.62 ng/dl (0.89-1.76); SGPT/ALT 19 U/L (5-49)
== END | disposition home or self-care (01) ==
LOC: LAB 12-22 15:51
PROVIDERS: ATTEND Internal Medicine
DX: E23.7 Disorder of pituitary gland, unspecified (principal); R79.9 Abnormal finding of blood chemistry, unspecified; R25.2 Cramp and spasm; R42 Dizziness and giddiness

== ENCOUNTER → 2025-02-14 | Outpatient (CLI) | payer MEDICARE ==
[2025-02-14 08:31] LABS: URINE CHLORIDE, RANDOM 63.0 mmol/L
[2025-02-14 09:19] LABS: FREE T4 1.34 ng/dl (0.89-1.76)
== END | disposition home or self-care (01) ==
LOC: LAB 01:28
PROVIDERS: ATTEND Internal Medicine
DX: E23.7 Disorder of pituitary gland, unspecified (principal); E87.1 Hypo-osmolality and hyponatremia; E03.9 Hypothyroidism, unspecified

== ENCOUNTER → 2025-03-08 | Outpatient (CLI) | payer MEDICARE ==
[2025-03-08 13:47] LABS: BASO # 0.1 10*3/uL (0.0-0.1); BASO % 2.2 % (0.0-1.0); EOS # 0.1 10*3/uL (0.0-0.4); EOS % 4.0 % (1.0-4.0); MEAN CELL VOLUME 93.4 fl (81.0-99.0); MEAN CORPUSCULAR HGB 31.1 pg (27.0-31.0); MEAN PLATELET VOLUME 8.7 fl (9.6-12.3); MONO # 0.4 10*3/uL (0.1-1.0); MONO % 12.7 % (3.0-9.0); NEUT # 1.5 10*3/uL (2.3-7.9); NEUT % 53.6 % (47.0-73.0); NUCLEATED RED BLOOD CELL 0.0 % (0.0-0.0); NUCLEATED RED BLOOD CELL 0.0 10*3/uL (0.0-0.0); PLATELET COUNT AUTOMATED 202 10*3/uL (130-400); RED CELL DISTRI WIDTH 15.1 % (0-14.5)
[2025-03-08 14:31] LABS: BUN 10 mg/dl (9-23); SGPT/ALT 27 U/L (5-49)
== END ==
LOC: LAB 02:48
PROVIDERS: Internal Medicine Nephrology; ATTEND Internal Medicine Nephrology
DX: N20.0 Calculus of kidney (principal); D50.8 Other iron deficiency anemias; E22.2 Syndrome of inappropriate secretion of antidiuretic hormone

== ENCOUNTER → 2025-03-30 | Outpatient (CLI) | payer MEDICARE | END | disposition home or self-care (01) | LOC: LAB 00:32 | PROVIDERS: ATTEND Internal Medicine | DX: E87.1 Hypo-osmolality and hyponatremia (principal) ==

== ENCOUNTER → 2025-04-21 | Outpatient (CLI) | payer MEDICARE ==
[2025-04-21 11:54] LABS: FREE T4 1.4 ng/dl (0.89-1.76)
== END | disposition home or self-care (01) ==
LOC: LAB 03:05
PROVIDERS: ATTEND Internal Medicine Endocrinology, Diabetes & Metabolism
DX: E03.9 Hypothyroidism, unspecified (principal)